=== PATIENT | female | born 1955 | race Two or more races ===

== ENCOUNTER 2020-08-18 05:20 | Day surgery (SDC) | payer OTHER ==
[~2020-08-18 05:20] MED LIST: ADULT LOW DOSE81 M1 PO; COZAAR100 MG PO; MULTIPLE VITAM1 EAC2 PO
== END 2020-08-18 15:00 | disposition home or self-care (01) ==
LOC: CIR.AMB 05:20
PROVIDERS: ATTEND Obstetrics & Gynecology
DX: N84.0 Polyp of corpus uteri (principal); Z20.822 Contact with and (suspected) exposure to COVID-19

== ENCOUNTER 2024-06-11 05:45 | Day surgery (SDC) | payer OTHER ==
[2024-06-07 14:00] LABS: INR 0.94; PARTIAL THROMBOPLASTIN TIME 27.3 SECONDS (22.0-34.0); PROTHROMBIN TIME 10.3 SECONDS (9.0-11.5)
[2024-06-07 14:30] VITALS: BP 135/77
[~2024-06-11] VITALS: Ht 157.5 cm; Wt 108.9 kg
[~2024-06-11 05:45] MED LIST changes: +ROSUVASTATIN CA10 MG PO
[2024-06-11] MEDS ORDERED: CHLORHEXIDINE GLUCONATE 120 ML BOTTLE TOP ONE (07:47)
[2024-06-11] MEDS ORDERED: POVIDONE-IODINE 118 ML BOTT TOP ONE (07:47)
[2024-06-11] MEDS ORDERED: ONDANSETRON HCL 2 MG/ML VIAL IV ONE (08:30)
[2024-06-11] MEDS ORDERED: KETOROLAC TROMETHAMINE 30 MG VIAL IV ONE (08:45)
[2024-06-11] MEDS ORDERED: KETOROLAC TROMETHAMINE 30 MG VIAL ONE (10:58)
== END 2024-06-11 13:55 | disposition home or self-care (01) ==
LOC: CIR.AMB 05:45
PROVIDERS: ATTEND Obstetrics & Gynecology
DX: N95.0 Postmenopausal bleeding (principal); N84.0 Polyp of corpus uteri; Z91.018 Allergy to other foods